=== PATIENT | male | born 1985 ===

== ENCOUNTER 2017-03-05 08:00 | Emergency (ER) | payer MEDICAID, OTHER ==
[2017-03-05 08:05] VITALS: BP 142/66; PULSE 74; RESP 18; TEMP 97.7; O2SAT 100
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
--- NOTE | 2017-03-05 09:17 | CT ---
PROCEDURE: CT HEAD WITHOUT CONTRAST. HISTORY: headache COMPARISON: None available. TECHNIQUE: Axial computed tomography images were obtained through the head/brain without intravenous contrast. Radiation dose: Total exam DLP = 1124.9 mGy-cm. This CT exam was performed using one or more of the following dose reduction techniques: Automated exposure control, adjustment of the mA and/or kV according to patient size, and/or use of iterative reconstruction technique. FINDINGS: HEMORRHAGE: No intracranial hemorrhage. BRAIN: No mass effect or edema. No atrophy or chronic microvascular ischemic changes. VENTRICLES: Unremarkable. No hydrocephalus. CALVARIUM: Unremarkable. PARANASAL SINUSES: [id number] ethmoidal mucosal thickening seen. MASTOID AIR CELLS: Unremarkable as visualized. No inflammatory changes. OTHER FINDINGS: None. IMPRESSION: No evidence of acute intracranial hemorrhage intracranial collection mass effect or midline shift. [id number] ethmoidal mucosal thickening.
--- NOTE | 2017-03-05 09:43 | RAD ---
PROCEDURE: Cervical Spine Radiographs. HISTORY: Pain. COMPARISON: None. FINDINGS: BONES: There is normal alignment of the cervical vertebral bodies. Cervical lordosis is maintained. Vertebral bodies are normal in height. There is no acute fracture or spondylolisthesis. The craniocervical junction is normal. The atlantoaxial joint is normal DISC SPACES: Normal. SOFT TISSUES: Normal. No prevertebral soft tissue swelling. OTHER FINDINGS: None. IMPRESSION: No acute fracture or traumatic anterior listhesis.
--- NOTE | 2017-03-05 09:57 | CT ---
PROCEDURE: CT MAXILLOFACIAL BONES WITHOUT CONTRAST HISTORY: Facial pain COMPARISON: None TECHNIQUE: Contiguous axial CT images of the maxillofacial bones were obtained. Coronal and sagittal reformats were generated. Radiation dose: Total exam DLP = 799.06 mGy-cm. This CT exam was performed using one or more of the following dose reduction techniques: Automated exposure control, adjustment of the mA and/or kV according to patient size, and/or use of iterative reconstruction technique. FINDINGS: NASAL BONES: Intact. ORBITS: Both globes are within normal limits. PARANASAL SINUSES/ MASTOIDS: There is mild polypoid mucosal thickening in the right maxillary sinus and obstruction of the right ostiomeatal unit. There is minimal polypoid mucosal thickening in the left maxillary sinus. There is moderate polypoid mucosal thickening in the right frontal sinus. The left frontal sinus is well aerated. There is moderate mucoperiosteal thickening in the ethmoid air cells. The sphenoid sinus is clear. MAXILLA: Unremarkable. MANDIBLE/ TEMPOROMANDIBULAR JOINTS: Unremarkable. SKULL BASE: Unremarkable. TEMPORAL BONES: Middle ears and mastoid grossly unremarkable. OTHER FINDINGS: None. IMPRESSION: Mild chronic right frontal, ethmoid and maxillary sinusitis with obstruction of the right ostiomeatal unit.
== END 2017-03-05 12:33 | disposition home or self-care (01) ==
LOC: H.ER 08:00
DX: S09.90XA Unspecified injury of head, initial encounter (principal); S09.93XA Unspecified injury of face, initial encounter; W19.XXXA Unspecified fall, initial encounter; Y92.410 Unspecified street and highway as the place of occurrence of the external cause; F41.9 Anxiety disorder, unspecified; J32.0 Chronic maxillary sinusitis; J32.2 Chronic ethmoidal sinusitis; K85.90 Acute pancreatitis without necrosis or infection, unspecified

== ENCOUNTER 2017-03-10 21:45 | Emergency (ER) | payer SELFPAY ==
[2017-03-10 22:02] VITALS: BP 154/72; PULSE 75; RESP 16; TEMP 98.1; O2SAT 99
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
--- NOTE | 2017-03-11 00:55 | ED PDOC ---
- ECG O2 Sat by Pulse Oximetry: 99 (RA) Pulse Ox Interpretation: Normal Medical Decision Making Medical Decision Makin:00 Patient transferred over to provider by Dr. Bravo. Pending crisis evaluation. Initial Plan: * Ativan 2 mg PO * Reevaluation Cleared by psych, pt. asking for medication to ease his anxiety, will give one time dose of ativan and d/c home. Cleared by Dr. Ruvalcaba- dx: anxiety. Scribe Attestation: Documented by Lg Rogers, acting as a scribe for Elijah Phan MD. Provider Scribe Attestation: All medical record entries made by the Scribe were at my direction and personally dictated by me. I have reviewed the chart and agree that the record accurately reflects my personal performance of the history, physical exam, medical decision making, and the department course for this patient. I have also personally directed, reviewed, and agree with the discharge instructions and disposition. Disposition - Clinical Impression Clinical Impression: Depression, Anxiety - POA Present On Arrival: None - Disposition Referrals: [facility] [Outside] Disposition: Routine/Home Disposition Time: 01:03 Condition: STABLE Instructions: Anxiety (ED)
== END 2017-03-11 01:05 | disposition home or self-care (01) ==
LOC: H.ER 21:45
DX: F41.9 Anxiety disorder, unspecified (principal); F32.9 Major depressive disorder, single episode, unspecified; K85.90 Acute pancreatitis without necrosis or infection, unspecified